=== PATIENT | female | born 1990 | race Caucasian/White ===

== ENCOUNTER 2024-09-06 12:40 | Emergency (ER) | payer OTHER, SELFPAY ==
[2024-09-06 12:49] VITALS: BP 128/82; PULSE 85; RESP 20; TEMP 37.2; O2SAT 99; BMI 31.1
[2024-09-06 13:07] VITALS: PULSE 85
[2024-09-06 13:08] VITALS: BP 125/76; PULSE 82; RESP 19; O2SAT 99
--- NOTE | 2024-09-06 13:10 | EKG_ITS ---
[address] [address] Test Date: 2024-09-06 Pat Name: Dania Granger Department: [facility] Room: Gender: Female Psychiatry Physician: СЕРГЕЙ : 1990 Requested By: Order Number: [id number] Reading MD: Sammy Finney MD Measurements Intervals [place] Rate: 74 P: 59 [place]: 174 QRS: 50 QRSD: 84 T: 8 QT: 382 QTc: 424 Interpretive Statements Normal sinus rhythm Cannot rule out Anterior infarct , age undetermined Electronically Signed On 09-07-2024 7:31:05 PDT by Sammy Finney MD
[2024-09-06 13:11] LABS: Add Manual Diff / Slide Review NO; Basophils Absolute Auto 100 /uL (0-100); Basophils Percent Auto 0.6 % (0-2); Eosinophils Absolute Auto 200 /uL (0-450); Hematocrit 38.7 % (36-46); Hemoglobin 13.4 g/dL (12.0-16.0); Lymphocytes Absolute Auto 1900 /uL (1100-4500); Lymphocytes Percent Auto 21.5 % (25-40); Mean Corpuscular HGB Conc 34.7 % (30-36); Mean Corpuscular Hemoglobin 30.4 PG (26-34); Mean Corpuscular Volume 87.6 fL (80-100); Monocytes Absolute Auto 500 /uL (0-900); Monocytes Percent Auto 5.3 % (3-14); Neutrophils Absolute Auto 6200 /uL (1500-7000); Neutrophils Percent Auto 70.6 % (50-75); Platelet Count 220 X10^3/uL (150-400); Red Blood Cell Count 4.42 X10^6/uL (4.0-5.2); Red Cell Distribution Width 13.4 % (11.6-14.8); White Blood Cell Count 8.7 X10^3/uL (4.5-11.0)
[2024-09-06 13:16] VITALS: BP 136/73; PULSE 81; RESP 20; O2SAT 98
[2024-09-06 13:29] LABS: INR 1.1 (0.9-1.3); Prothrombin Time 12.4 SECONDS (9.4-12.5)
[2024-09-06 13:30] VITALS: BP 123/69; PULSE 85; RESP 19; O2SAT 99
[2024-09-06 13:32] LABS: PTT Partial Thromboplastin Tim 34 SECONDS (25.1-36.5)
[2024-09-06 13:34] LABS: Alanine Aminotransferase 25 IU/L (<35); Albumin 4.5 g/dL (3.5-5.0); Albumin Globulin Ratio 1.6 (1.0-2.8); Alkaline Phosphatase 58 U/L (38-126); Aspartate Aminotransferase 27 IU/L (14-36); BUN Creatinine Ratio 14.5 (6-22); Bilirubin Total 0.7 mg/dL (0.2-1.3); Blood Urea Nitrogen 10 mg/dL (7-17); Calcium 9.3 mg/dL (8.4-10.2); Carbon Dioxide 22 mmol/L (22-32); Chloride 106 mmol/L (98-107); Estimated Glomerular Filt Rate > 60 mL/min (>60); Globulin 2.9 g/dL (1.7-4.1); Glucose 93 mg/dL (70-99); HEMOLYSIS < 15 (0-50); Potassium 3.8 mmol/L (3.4-5.1); Sodium 139 mmol/L (137-145); Total Protein 7.4 g/dL (6.3-8.2)
[2024-09-06] MEDS: PANTOPRAZOLE 40 MG VIAL 80 MG IV (13:38)
--- NOTE | 2024-09-06 13:41 | ED_ITS ---
HPI - GI Bleed General Chief complaint: GI Bleed Stated complaint: Rectal bleeding 5 weeks Time Seen by Provider: 09/06/24 12:58 Source: patient Mode of arrival: Ambulatory History of Present Illness HPI Narrative: Patient is a female, approximately six weeks gestation, who presents with a 2.5-hour history of bright red blood in her stool. She reports that the blood appeared mixed with stool and water, and she is uncertain if tissue was present. She denies abdominal pain, cramping, burning with urination, or vaginal discharge. She describes a mild stinging or burning sensation in the anal area, similar to the feeling of a medicated hemorrhoid, but her checked and did not observe any visible hemorrhoids. She has a history of hemorrhoids during her previous . Pertinent positives: Bright red blood in stool, mild stinging or burning sensation in the anal area. Pertinent negatives: No abdominal pain, cramping, burning with urination, or vaginal discharge. Past Medical History: Gestational diabetes during her last , history of two chemical pregnancies, and a prior delivery complicated by shoulder dystocia due to a large baby (9 lbs 8 oz). Medications: Zyrtec, vitamin D supplement, vitamins, and 300 mg of Wellbutrin daily. Surgical History: Not mentioned. Allergies: Not mentioned. Related Data Allergies Allergy/AdvReac Type Severity Reaction Status Date / Time No Known Drug Allergies Allergy Verified 09/06/24 13:31 Review of Systems Review of Systems Narrative: Constitutional: no fevers, chills, or fatigue. Eyes: no visual changes. Ears/Nose/Throat: no nasal congestion or drainage. Respiratory: no shortness of breath or increased work of breathing. Cardiac: no chest pain. Gastrointestinal: reports bright red blood in stool, denies abdominal pain or cramping. Genitourinary: denies burning with urination or vaginal discharge. Skin: no rash or lesions. Musculoskeletal: denies significant edema or erythema in lower extremities. Neurologic: no confusion or dizziness. Psychiatric: no mood changes. Other: no additional complaints. Patient History Social History Smoking Status: Never smoker Smoking Status: Never smoker Exam Narrative Exam Narrative: General: Well appearing, well nourished, alert, and cooperative. Skin: Good turgor, no rash, unusual bruising or prominent lesions. Head: Normocephalic, atraumatic. HEENT: Conjunctiva clear, EOM intact, PERRL, mucous membranes moist. Neck: Supple, normal ROM. Heart: Regular rate and rhythm, no murmur or gallop or rubs. Lungs: Clear to auscultation bilaterally, no rales, rhonchi, or wheezes. No signs of increased work of breathing. Abdomen: Soft and nontender. No tenderness on abdominal palpation. Bowel sounds normal. No mass or hernia. Back: Spine normal without deformity or tenderness, no CVA tenderness. Extremities: Warm, well-perfused upper extremities bilaterally with 2+ radial pulses. No significant edema or overlying erythema in bilateral lower extremities. Peripheral pulses intact. Neurologic: CN 2-12 normal. Normal sensation and motor exam. Psychiatric: Oriented ?3, normal mood and affect. Initial Vital Signs Initial Vital Signs: Vital Signs Temperature 99 F 09/06/24 12:49 Pulse Rate 85 09/06/24 12:49 Respiratory Rate 20 09/06/24 12:49 Blood Pressure 128/82 09/06/24 12:49 Pulse Oximetry 99 09/06/24 12:49 Oxygen Delivery Method Room Air 09/06/24 12:49 Course Orders Ordered: ED Orders 09/06/24 12:54 EKG-12 Lead Stat 09/06/24 13:01 Complete Blood Count AUTO DIFF Stat Comprehensive Metabolic Panel Stat PTT Partial Thromboplastin Mushtaq Stat Prothrombin Time INR Stat Type and Screen Stat Ondansetron HCl (Ondansetron 4 Mg/2 Ml Inj) 4 mg IV NOW PRN PRN Reason: Nausea And Vomiting Ondansetron HCl (Ondansetron 4 Mg Odt) 4 mg SL NOW PRN PRN Reason: Nausea And Vomiting Discontinued Medications Pantoprazole Sodium (Pantoprazole 40 Mg Vial) 80 mg IV NOW ONE Stop: 09/06/24 12:55 Last Admin: 09/06/24 13:38 Dose: 80 mg Documented By: SB Vital Signs Vital signs: Vital Signs - 8 hr 09/06/24 12:49 09/06/24 13:07 09/06/24 13:08 Temperature 99 F Pulse Rate 85 85 82 Respiratory Rate 20 19 Blood Pressure 128/82 Pulse Oximetry 99 99 Oxygen Delivery Method Room Air 09/06/24 13:08 09/06/24 13:16 09/06/24 13:16 Temperature Pulse Rate 81 Respiratory Rate 20 Blood Pressure 125/76 136/73 Pulse Oximetry 98 Oxygen Delivery Method Room Air 09/06/24 13:30 09/06/24 13:30 Temperature Pulse Rate 85 Respiratory Rate 19 Blood Pressure 123/69 Pulse Oximetry 99 Oxygen Delivery Method MDM - GI Bleed Lab Data Lab results narrative: Patient's labs were reviewed which were overall reassuring patient has no significant leukocytosis and her hemoglobin is found to be 13.4, no evidence of significant thrombocytopenia -patient's liver enzymes within normal limits with no acute abnormalities requiring ED intervention -intact kidney function 09/06/24 13:01 09/06/24 13:01 Labs: Lab Results 09/06/24 Range/Units 13:01 WBC 8.7 (4.5-11.0) X10^3/uL RBC 4.42 (4.0-5.2) X10^6/uL Hgb 13.4 (12.0-16.0) g/dL Hct 38.7 (36-46) % MCV 87.6 (80-100) fL MCH 30.4 (26-34) PG MCHC 34.7 (30-36) % RDW 13.4 (11.6-14.8) % Plt Count 220 (150-400) X10^3/uL Neut % (Auto) 70.6 (50-75) % Lymph % (Auto) 21.5 L (25-40) % [place] % (Auto) 5.3 (3-14) % Eos % (Auto) 2.0 (2-4) % Baso % (Auto) 0.6 (0-2) % Neut # (Auto) 6200 (9434-9150) /uL Lymph # (Auto) 1900 (9131-7597) /uL [place] # (Auto) 500 (0-900) /uL Eos # (Auto) 200 (0-450) /uL Baso # (Auto) 100 (0-100) /uL PT 12.4 (9.4-12.5) SECONDS INR 1.1 (0.9-1.3) APTT 34 (25.1-36.5) SECONDS Sodium 139 (137-145) mmol/L Potassium 3.8 (3.4-5.1) mmol/L Chloride 106 (98-107) mmol/L Carbon Dioxide 22 (22-32) mmol/L BUN 10 (7-17) mg/dL Creatinine 0.69 (0.52-1.04) mg/dL Estimated GFR > 60 (>60) mL/min BUN/Creatinine Ratio 14.5 (6-22) Glucose 93 (70-99) mg/dL Calcium 9.3 (8.4-10.2) mg/dL Total Bilirubin 0.7 (0.2-1.3) mg/dL AST 27 (14-36) IU/L ALT 25 (<35) IU/L Alkaline Phosphatase 58 (38-126) U/L Total Protein 7.4 (6.3-8.2) g/dL Albumin 4.5 (3.5-5.0) g/dL Globulin 2.9 (1.7-4.1) g/dL Albumin/Globulin Ratio 1.6 (1.0-2.8) Blood Type A Positive Antibody Screen Negative Point of Care Testing Test Results Positive Stool Occult Blood Positive Urine Dip Bedside Urine Glucose Negative Bedside Urine Bilirubin - Negative Bedside Urine Ketone - Negative Urine Specific [place] 1.015 Bedside Urine Occult Blood - Negative Bedside Urine pH 6.5 Bedside Urine Protein - Negative Bedside Urine Urobilinogen - Negative Bedside Urine Nitrite - Negative Bedside Urine Leukocytes - Negative Esterase Treatment and disposition Shared decision making:: Decision for hospitalization versus outpatient follow up for potential colonoscopy MDM Narrative Medical decision making narrative: INITIAL EVALUATION AND PLAN: - Perform a physical exam to evaluate for hemorrhoids or other potential sources of bleeding, including the anal and vaginal areas. - Blood work to assess hormone levels, hemoglobin levels, and evaluate for significant blood loss. - Determine the source of bleeding, considering possibilities such as hemorrhoids, gastrointestinal bleeding, or other etiologies. - Follow-up with [facility] for first appointment next and scheduled ultrasound on the . - Continue current medications, including vitamins. Differential diagnosis includes but is not limited to: hemorrhoids, gastrointestinal bleeding, 1st trimester bleeding, vaginal bleeding, or other causes of rectal bleeding. Well-appearing hemodynamically stable 34-year-old female coming in for bright red blood per rectum, no tachycardia, hypotension or significant abdominal pain. -physical exam on pelvic exam shows no blood within the vaginal vault no active bleeding, patient does have some bright red blood on rectum on digital rectal exam. Suspect rectal rather than vaginal source of the bleeding do not believe patient requires ultrasound at this time however it was considered given patient has no vaginal bleeding and no abdominal tenderness at this time. She should follow up outpatient with her OB provider. -in regards to her lower GI bleeding she has not had any incidents since she was in the emergency department, she has no significant drop in hemoglobin she has no significant tachycardia, hypotension or symptoms of anemia, the case was discussed with Dr. De Los Santos of the surgery team and we discussed potential admission versus outpatient follow up, given the patient is relatively low risk given age, blood count and vital signs will opt for outpatient management and a referral was placed so that she could be seen in their clinic as soon as possible. Strict return precautions were discussed with the patient prior to DC Discharge Plan Departure Patient Disposition: Home Clinical Impression: Acute lower GI bleeding Instructions: Gastrointestinal Bleeding Activity Restrictions/Additional Instructions: You were seen in the emergency department today and found to have some blood coming from your rectum fortunately you had reassuring lab work vital signs and abdominal exam. Your case was discussed with Dr. De Los Santos of the General surgery team who was agreeable to seeing you in their clinic on Wednesday however if you have worsening symptoms in the meantime such as feeling like he may pass out or extensive bleeding please return to the ED as you may need to be admitted in order to get this done under monitoring. Please call their office as soon as possible in order to confirm her appointment and need for any GI prep Name Detail Ian De Los Santos MD Physician Address [address], [address] [place] [address] Phone Email [email or web address] [email or web address] Direct Address Referrals: Ian De Los Santos MD [Physician] - (Patient is seen in the emergency department for lower GI bleeding, requested to have them seen in the office on Wednesday rather than inpatient admission. Please call them for appointment in any need for GI prep.) Anthony Bolanos MD [Emergency Provider] - Provider,Boo WESTON [Primary Care Provider] - Stand Alone Forms: Patient Portal/API/Survey
== END 2024-09-06 14:54 | disposition home or self-care (01) ==
PROVIDERS: Emergency Provider Emergency Medicine
DX: O26.891 Other specified pregnancy related conditions, first trimester (principal); K92.2 Gastrointestinal hemorrhage, unspecified; Z3A.01 Less than 8 weeks gestation of pregnancy
CPT/HCPCS: 36415; 80053; 81003; 81025; 82272; 85025; 85610; 85730; 86850; 86900; 86901; 93005; 93010; 96374; 99284; J2470

== ENCOUNTER → 2024-09-14 13:59 | Outpatient (CLI) | payer OTHER, SELFPAY ==
[2024-09-14 15:00] LABS: Add Manual Diff / Slide Review NO; Basophils Absolute Auto 0 /uL (0-100); Basophils Percent Auto 0.5 % (0-2); Eosinophils Absolute Auto 200 /uL (0-450); Hematocrit 36.1 % (36-46); Lymphocytes Absolute Auto 2100 /uL (1100-4500); Lymphocytes Percent Auto 21.7 % (25-40); Mean Corpuscular Hemoglobin 31.5 PG (26-34); Mean Corpuscular Volume 87.5 fL (80-100); Monocytes Absolute Auto 500 /uL (0-900); Monocytes Percent Auto 5.2 % (3-14); Neutrophils Absolute Auto 6800 /uL (1500-7000); Neutrophils Percent Auto 70.6 % (50-75); Platelet Count 199 X10^3/uL (150-400); Red Blood Cell Count 4.13 X10^6/uL (4.0-5.2); Red Cell Distribution Width 13.5 % (11.6-14.8); White Blood Cell Count 9.7 X10^3/uL (4.5-11.0)
[2024-09-14 15:10] LABS: Hemoglobin A1C% w Est Avg Glu 4.6 % (4.0-6.0)
[2024-09-14 16:09] LABS: HCG Quantitative /Beta subunit 62206 mIU/mL
[2024-09-14 16:24] LABS: Hepatitis B Surface Antigen NEGATIVE s/c (NEGATIVE)
[2024-09-14 16:41] LABS: HIV 1 & 2 Ab/Ag 4th Gen Combo NEGATIVE (NEGATIVE); Hep C Virus Ab w/Reflex Quant NEGATIVE s/c (NEGATIVE)
[2024-09-14 17:03] LABS: Appearance Urine UA CLEAR; Bilirubin Urine UA NEGATIVE (NEGATIVE); Color Urine UA YELLOW; Glucose Urine UA NEGATIVE (Negative); Ketones Urine UA NEGATIVE (NEGATIVE); Leukocyte Esterase Urine UA NEGATIVE (NEGATIVE); Nitrite Urine UA NEGATIVE (Negative); Occult Blood Urine UA NEGATIVE (Negative); Protein Urine UA NEGATIVE (Negative); Urobilinogen Urine UA 0.2 E.U./dL (0.2)
[2024-09-14 17:07] LABS: pH Urine UA 6.5 (4.5-8.0)
== END ==
PROVIDERS: Referring Provider Family Medicine; Visit Provider Family Medicine
DX: O09.299 Supervision of pregnancy with other poor reproductive or obstetric history, unspecified trimester (principal); Z86.32 Personal history of gestational diabetes
CPT/HCPCS: 36415; 80055; 81003; 83036; 84702; 86787; 86803; 86850; 86900; 86901; 87086; 87389

== ENCOUNTER → 2024-10-20 14:04 | Outpatient (CLI) | payer OTHER, SELFPAY ==
[2024-10-20 15:09] LABS: Natera Collection Specimen Collected
== END ==
PROVIDERS: Referring Provider Family Medicine; Visit Provider Family Medicine
DX: Z34.82 Encounter for supervision of other normal pregnancy, second trimester (principal)
CPT/HCPCS: 36415

== ENCOUNTER → 2024-10-27 13:54 | Outpatient (CLI) | payer OTHER, SELFPAY ==
[2024-10-27 15:16] LABS: Hematocrit 30.5 % (36-46); Hemoglobin 10.9 g/dL (12.0-16.0)
[2024-10-27 15:39] LABS: GTT (PREG) 1 Hour PP 50gm Dose 107 mg/dL (76-139)
== END ==
PROVIDERS: Referring Provider Family Medicine; Visit Provider Family Medicine
DX: O09.299 Supervision of pregnancy with other poor reproductive or obstetric history, unspecified trimester (principal); Z86.32 Personal history of gestational diabetes
CPT/HCPCS: 36415; 82950; 85014; 85018

== ENCOUNTER → 2024-12-06 14:21 | Outpatient (CLI) | payer OTHER, SELFPAY ==
[2024-12-08 20:12] LABS: Gest Age on Col Date 18.7 weeks (.); OSBR Risk 1IN 9540 (.)
== END ==
PROVIDERS: Referring Provider Family Medicine; Visit Provider Family Medicine
DX: Z34.90 Encounter for supervision of normal pregnancy, unspecified, unspecified trimester (principal); Z13.79 Encounter for other screening for genetic and chromosomal anomalies
CPT/HCPCS: 36415; 82105

== ENCOUNTER 2024-12-07 19:12 | Emergency (ER) | payer OTHER, SELFPAY ==
[2024-12-07 19:24] VITALS: BP 120/80; PULSE 107; RESP 18; TEMP 36.8; O2SAT 100; BMI 34.2
[2024-12-07 20:18] LABS: Ictotest Urine Negative (Negative)
== END 2024-12-07 21:33 | disposition left against medical advice (07) ==
PROVIDERS: Emergency Provider Emergency Medicine
DX: O26.892 Other specified pregnancy related conditions, second trimester (principal); R10.31 Right lower quadrant pain; O21.9 Vomiting of pregnancy, unspecified; Z3A.19 19 weeks gestation of pregnancy
CPT/HCPCS: 81003; 99281

== ENCOUNTER → 2024-12-15 07:24 | Outpatient (CLI) | payer OTHER, SELFPAY ==
--- NOTE | 2024-12-15 07:25 | DI.US.S_ITS ---
PROCEDURE: US OB >= 14 WEEKS FETUS INDICATIONS: Anatomy Scan Complete OUTSIDE/PRIOR DATING DATA: Last menstrual period (LMP): July 28, 2024. LMP-based estimated date of delivery (ETHAN): May 04, 2025. First dating scan (date and location): September 19, 2024. Estimated date of delivery (ETHAN) from first dating scan: May 04, 2025. The calculations are made using the LMP ETHAN of May 04, 2025. TECHNIQUE: Real-time scanning was performed of the fetus, with image documentation and biometric measurements. Endovaginal scanning: Not performed COMPARISON: None. FINDINGS: General: A single living intrauterine gestation is present. Presentation: Variable. Placenta: Placental position is anterior, without previa. Amniotic fluid index: 16.6 cm, normal range is 5-24 cm. Single deepest vertical pocket is 5.8 cm. heart rate: 147 beats per minute. Maternal cervical canal: 4.4 cm long. Normal lower limit is 2.5 cm. biometrics: Biparietal diameter: 4.7 cm, 20 weeks and 2 days Head circumference: 16.8 cm, 19 weeks and 3 days Abdominal circumference: 14.6 cm, 19 weeks and 6 days Femur length: 3.2 cm, 19 weeks and 6 days Clinically estimated gestational age: 20 weeks and 0 days Composite gestational age from present scan: 19 weeks and 6 days Estimated weight and percentile: 315 g which correlates with the 35th percentile for gestational age. Anatomic survey: Neuro: Ventricles are non-dilated at less than 10 mm. Cisterna magna is normal at 3-11 mm. Cerebellum is normal in size and morphology. Nuchal skin fold: Normal at less than 6 mm between 14-21 weeks gestational age. Face: Nose and lips, facial profile are normal. Spine: No evidence for spina bifida. Heart: 4-chambered heart is present, with normal ventricular outflow tracts. Diaphragm: Diaphragm is intact. Stomach: Left-sided stomach is present. Kidneys: No hydronephrosis. Normal is less than 5 mm in 2nd trimester, less than 7 mm in 3rd trimester. Cord: 3-vessel cord has orthotopic insertion. Bladder: Normal in size. Extremities: All 4 extremities identified. IMPRESSION: Single living intrauterine gestation with estimated sonographic gestational age of approximately 19 weeks and 6 days with estimated weight of approximately 315 g (35th percentile for age). Expected interval growth has occurred. Normal routine second-trimester anatomy screening survey. We strive to produce accurate, complete, and clear reports of imaging services. To assist us in improving patient care, this report was composed using standard report templates and voice recognition software. Therefore, it may contain abnormal punctuation, insertions and/or omissions. Occasional wrong-word or sound-alike substitutions may occur. Though we review the report and make efforts to correct it, we do recommend that the report be read carefully in proper context to recognize any text inaccuracies. Dictated by: Anthony Cash M.D. on 12/15/2024 at 11:22 Approved by: Anthony Cash M.D. on 12/15/2024 at 11:26
== END ==
LOC: US 07:24
PROVIDERS: Referring Provider Family Medicine; Visit Provider Family Medicine
DX: Z36.89 Encounter for other specified antenatal screening (principal)
CPT/HCPCS: 76811

== ENCOUNTER → 2025-01-18 09:31 | Outpatient (CLI) | payer OTHER, SELFPAY ==
[2025-01-18 12:15] LABS: Hematocrit 26.9 % (36-46); Hemoglobin 9.4 g/dL (12.0-16.0)
[2025-01-18 12:40] LABS: GTT (PREG) 1 Hour PP 50gm Dose 96 mg/dL (76-139)
== END ==
PROVIDERS: Referring Provider Family Medicine; Visit Provider Family Medicine
DX: O99.019 Anemia complicating pregnancy, unspecified trimester (principal); O09.299 Supervision of pregnancy with other poor reproductive or obstetric history, unspecified trimester; Z86.32 Personal history of gestational diabetes
CPT/HCPCS: 36415; 82950; 85014; 85018

== ENCOUNTER → 2025-04-10 13:55 | Outpatient (CLI) | payer OTHER, SELFPAY ==
[2025-04-11 14:53] LABS: Strep Grp B PCR NEG for Grp B Strep
== END ==
PROVIDERS: Visit Provider Family Medicine
DX: Z34.80 Encounter for supervision of other normal pregnancy, unspecified trimester (principal)
CPT/HCPCS: 87653

== ENCOUNTER 2025-04-12 21:02 | Observation (INO) | payer OTHER, SELFPAY ==
[2025-04-12 22:04] LABS: Protein (Total) Urine Random 16 mg/dL (0-12); Protein Creatinine Ratio Urine 1.11 GRAM/24H
[2025-04-12 22:23] LABS: Add Manual Diff / Slide Review NO; Hematocrit 27.4 % (36-46); Hemoglobin 9.8 g/dL (12.0-16.0); Lymphocytes Absolute Auto 2000 /uL (1100-4500); Mean Corpuscular HGB Conc 35.7 % (30-36); Mean Corpuscular Hemoglobin 33.7 PG (26-34); Mean Corpuscular Volume 94.5 fL (80-100); Platelet Count 180 X10^3/uL (150-400)
[2025-04-12 22:38] LABS: Alanine Aminotransferase 19 IU/L (<35); Albumin 3.8 g/dL (3.5-5.0); Albumin Globulin Ratio 1.3 (1.0-2.8); Alkaline Phosphatase 77 U/L (38-126); Blood Urea Nitrogen 9 mg/dL (7-17); Calcium 9.0 mg/dL (8.4-10.2); Carbon Dioxide 20 mmol/L (22-32); Chloride 108 mmol/L (98-107); Estimated Glomerular Filt Rate > 60 mL/min (>60); Globulin 2.9 g/dL (1.7-4.1); Glucose 85 mg/dL (70-99); HEMOLYSIS < 15 (0-50); Potassium 3.8 mmol/L (3.4-5.1); Sodium 135 mmol/L (137-145); Total Protein 6.7 g/dL (6.3-8.2); Uric Acid 4.2 mg/dL (2.5-6.2)
--- NOTE | 2025-04-13 21:15 | PM.OBTRLD ---
Visit Information Visit Information Date of evaluation: 04/12/25 Primary OB Provider: Jose Winter On-call OB Provider: Leticia Duckworth Reason for Evaluation: Yes other Comments/Additional reasons for admission: 34 yo at 36w6d with concern for elevated blood pressures at home and hand swelling. Took BP at home and it was 152/86. Vital Signs Vital Signs: BP 124/74 [facility] Medical History (Updated 03/30/25 @ 11:54 by Jose Winter MD) Sleep apnea (~2022) Allergies (~1995) PTSD (post-traumatic stress disorder) (~2011) Anxiety (~2011) Carpal tunnel syndrome (~2022) Anemia (~2017) Chlamydia (~2016) History of urinary incontinence (~2022) ADHD (attention deficit hyperactivity disorder) (~2010) Depression (~2011) Irritable bowel Eczema (~1995) Hemorrhoids during (~2017) Gestational diabetes Chicken pox (~1997) Surgical History (Updated 09/14/24 @ 11:09 by Joan Montero RN) [place] teeth removed History of tonsillectomy and adenoidectomy Family History (Updated 09/20/24 @ 21:04 by Syl Hull) Father Heart disease Hyperlipidemia Hypertension Mother Hyperlipidemia Ovarian cyst Aunt Breast cancer Grandfather Heart disease Grandfather Heart disease Son Eczema Food allergy Grandmother No problems noted. Social History marital status: number of children: 2 household members: spouse lives independently: Yes caregiver/support person: Yes housing: house pets and animals: No education level: college (Associate's degree) occupational status: employed current occupational exposures/hazards: No special nemesio needs: No travel history: recent (domestic only) seatbelt use: always helmet use: Yes water heater temp set < 120 deg: Yes working smoke detector in home: Yes fire extinguisher in home: Yes carbon monox detector in home: Yes firearms in home: Yes firearms unloaded and locked: Yes do you feel safe at home: Yes Tobacco: How many years used: 15 second hand exposure: Yes ( smokes) 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) substance use type: former substance user (in teens and early 20s) and marijuana (not while /) during the past year weight has: decreased > 10 lbs (intentional 70 lb loss with healthier lifestyle choices) well-balanced diet: daily or most days daily servings fruits/ve or more times/day caffeine: Yes (single cup coffee most days) 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 % (Auto) 6.0 Eos % (Auto) 1.1 L Baso % (Auto) 0.3 Neut # (Auto) 8000 H Lymph # (Auto) 2000 [place] # (Auto) 700 Eos # (Auto) 100 Baso # (Auto) 0 Sodium 135 L Potassium 3.8 Chloride 108 H Carbon Dioxide 20 L BUN 9 Creatinine 0.55 Estimated GFR > 60 BUN/Creatinine Ratio 16.4 Glucose 85 Uric Acid 4.2 Calcium 9.0 Total Bilirubin 1.2 AST 29 ALT 19 Alkaline Phosphatase 77 Total Protein 6.7 Albumin 3.8 Globulin 2.9 Albumin/Globulin Ratio 1.3 U Random Total Protein 16 H Urine Creatinine 14.34 Protein/Creatinin Ratio 1.11 Evaluation Evaluation Baseline heart rate: 125 Variability: Moderate (6-25) monitor accelerations: Present Monitor Decelerations: Absent Category of Tracing: Reactive Diagnosis, Plan/Disposition Plan/Disposition Plan: 34 yo at 36w6d with concern for elevated blood pressure at home. All BPs at L&D within normal limits. CBC and CMP unremarkable. P/C ratio elevated. Safe for discharge home as she does not have gHTN or pre-eclampsia. Recommend fu with primary provider for elevated p/c ratio. OB Disposition: home
== END 2025-04-12 23:06 | disposition home or self-care (01) ==
PROVIDERS: Admitting Provider Student in an Organized Health Care Education/Training Program; Referring Provider Student in an Organized Health Care Education/Training Program; Visit Provider Student in an Organized Health Care Education/Training Program
DX: O26.893 Other specified pregnancy related conditions, third trimester (principal); R03.0 Elevated blood-pressure reading, without diagnosis of hypertension; Z3A.36 36 weeks gestation of pregnancy
CPT/HCPCS: 36415; 59025; 80053; 84550; 85025; G0378; G0379

== ENCOUNTER 2025-04-15 18:47 | Outpatient (CLI) | payer OTHER, SELFPAY | END 2025-04-15 19:48 | disposition home or self-care (01) | LOC: LABOR 20:04 → OB 04-16 13:50 | PROVIDERS: Referring Provider Student in an Organized Health Care Education/Training Program; Visit Provider Student in an Organized Health Care Education/Training Program | DX: O26.893 Other specified pregnancy related conditions, third trimester (principal); R03.0 Elevated blood-pressure reading, without diagnosis of hypertension; O99.213 Obesity complicating pregnancy, third trimester; E66.9 Obesity, unspecified; Z3A.37 37 weeks gestation of pregnancy | CPT/HCPCS: 59025; G0378; G0379 ==

== ENCOUNTER 2025-04-29 10:37 | Outpatient (CLI) | payer OTHER, SELFPAY | END 2025-04-29 11:42 | disposition home or self-care (01) | LOC: OB 04-30 10:36 | PROVIDERS: Referring Provider Family Medicine; Visit Provider Family Medicine | DX: Z03.71 Encounter for suspected problem with amniotic cavity and membrane ruled out (principal); Z3A.39 39 weeks gestation of pregnancy | CPT/HCPCS: 59025; 84112; G0378; G0379 ==

== ENCOUNTER 2025-05-01 13:59 | Inpatient (IN) | payer OTHER, SELFPAY ==
[2025-05-01 14:37] VITALS: BP 125/74
[2025-05-01 15:21] LABS: Add Manual Diff / Slide Review NO; Hematocrit 30.8 % (36-46); Hemoglobin 10.8 g/dL (12.0-16.0); Lymphocytes Absolute Auto 1300 /uL (1100-4500); Mean Corpuscular HGB Conc 35.0 % (30-36); Mean Corpuscular Hemoglobin 33.3 PG (26-34); Mean Corpuscular Volume 94.9 fL (80-100); Platelet Count 184 X10^3/uL (150-400)
--- NOTE | 2025-05-01 18:32 | PM.OBHP.IH.1 ---
OB HPI History of Present Condition Chief complaint: Induction ETHAN Calculator Estimated Delivery Date Method Current WG Current Estimate 05/04/25 LMP (Certain) 39w 5d Other Estimates 05/04/25 Ultrasound #1 39w 5d Estimated Gestational Age (weeks): 39+4 : 3 Para: 2 Narrative: 34-year-old at GA 39+4 weeks presenting for eIOL. Endorses normal movement. Denies vaginal bleeding or denies leakage of fluid. course notable for anemia on iron supplement, ADHD/PTSD on bupropion, obesity, history of macrosomia with shoulder dystocia in 1st , history of GDM in 2nd (1h GTT normal x2). care: good care Dating criteria OB: LMP confirmed by 1st trimester US Ultrasounds: normal 1st trimester US and normal mid trimester US Preadmission Labs Last OB Lab Results: Blood Type A Positive 05/01/25, 15:00 Antibody Screen Negative 05/01/25, 15:00 Hct, (36-46) 30.8 % L 05/01/25, 15:00 Hgb, (12.0-16.0) 10.8 g/dL L 05/01/25, 15:00 Hep Bs Antigen, (NEGATIVE) Negative s/c 09/14/24, 14:09 Hepatitis C Antibody, (NEGATIVE) Negative s/c 09/14/24, 14:09 Rubella Antibody, (>15) 126.0 IU/mL 09/14/24, 14:09 VZV IgG Antibody, (Non Reactive) Reactive 09/14/24, 14:09 Glucose 1 Hr 50 gm, (76-139) 96 mg/dL 01/18/25, 09:47 Hemoglobin A1c, (4.0-6.0) 4.6 % 09/14/24, 14:09 Group B Strep (PCR) Neg for grp b strep 04/10/25, 14:00 Prior (ies) Past Pregnancies Del. Date GA/Weeks Labor Lgth Wt Sex Route Outcome Anesthesia Place Delv Breastfeed Preg Comp Name 05/17/16 4-6 spontaneous 01/09/18 40.4 36 9 lb 8 oz Male vaginal live - full term epidural [place] 2 months [place] 08/04/22 39.5 23 8 lb 7 oz Male vaginal live - full term epidural Boo 7-8 months [place] 06/16/24 4-6 spontaneous Delivery Date: 05/17/16 Last Updated by: Joan Montero RN passed spontaneously, no complications Delivery Date: 01/09/18 Last Updated by: Joan Montero RN rapid 2nd stage Delivery Date: 08/04/22 Last Updated by: Joan Montero RN rapid 2nd stage Delivery Date: 06/16/24 Last Updated by: Joan Montero RN passed spontaneously, no complications Evaluation Evaluation Baseline heart rate: 140 Variability: Moderate (6-25) monitor accelerations: Present Monitor Decelerations: Absent Category of Tracing: Reactive Status: Category l Dilation: 1-2 cm Effacement: 0-30% station: -3 Position of cervix: mid Consistency: medium Samuels score: 3 Comments: Exam per L&D RN [facility] Medical History (Updated 03/30/25 @ 11:54 by Jose Winter MD) Sleep apnea (~2022) Allergies (~1995) PTSD (post-traumatic stress disorder) (~2011) Anxiety (~2011) Carpal tunnel syndrome (~2022) Anemia (~2017) Chlamydia (~2016) History of urinary incontinence (~2022) ADHD (attention deficit hyperactivity disorder) (~2010) Depression (~2011) Irritable bowel Eczema (~1995) Hemorrhoids during (~2017) Gestational diabetes Chicken pox (~1997) Surgical History (Updated 09/14/24 @ 11:09 by Joan Montero RN) [place] teeth removed History of tonsillectomy and adenoidectomy Family History (Updated 09/20/24 @ 21:04 by Syl Hull) Father Heart disease Hyperlipidemia Hypertension Mother Hyperlipidemia Ovarian cyst Aunt Breast cancer Grandfather Heart disease Grandfather Heart disease Son Eczema Food allergy Grandmother No problems noted. Social History marital status: number of children: 2 household members: spouse lives independently: Yes caregiver/support person: Yes housing: house pets and animals: No education level: college (Associate's degree) occupational status: employed current occupational exposures/hazards: No special nemesio needs: No travel history: recent (domestic only) seatbelt use: always helmet use: Yes water heater temp set < 120 deg: Yes working smoke detector in home: Yes fire extinguisher in home: Yes carbon monox detector in home: Yes firearms in home: Yes firearms unloaded and locked: Yes do you feel safe at home: Yes Tobacco: How many years used: 15 second hand exposure: Yes ( smokes) 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) substance use type: former substance user (in teens and early 20s) and marijuana (not while /) during the past year weight has: decreased > 10 lbs (intentional 70 lb loss with healthier lifestyle choices) well-balanced diet: daily or most days daily servings fruits/ve or more times/day caffeine: Yes (single cup coffee most days) 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 Meds Home Medications and Allergies Home Medications ?Medication ?Instructions ?Recorded ?Confirmed ?Type cholecalciferol (vitamin D3) 125 125 mcg PO DAILY 09/14/24 05/01/25 History mcg (5,000 unit) capsule vitamins with calcium 1 tab PO DAILY 09/14/24 05/01/25 History no.72-iron 27 mg-folic acid 1 mg tablet (M- Plus) pyridoxine (vitamin B6) 50 mg 50 mg PO BID-QID #90 tabs 09/19/24 05/01/25 Rx tablet ferrous sulfate 325 mg (65 mg 325 mg PO DAILY #90 tabs 01/20/25 05/01/25 Rx iron) tablet,delayed release bupropion HCl 300 mg 24 hr tablet, 300 mg PO QAM 03/15/25 05/01/25 History extended release Allergies Allergy/AdvReac Type Severity Reaction Status Date / Time egg AdvReac Mild Abdominal Verified 05/01/25 14:41 Pain mollusks AdvReac Mild Abdominal Verified 05/01/25 14:41 Pain OB Exam Narrative Exam Narrative: General: Well-nourished, no distress HEENT: NC/AT, EOMI, moist mucous membranes CV: RRR, normal S1 S2, no m/g/r Resp: CTAB Abd: Gravid, soft, NTND, +BS Ext: Full ROM, no edema Skin: No rash or lesions Neuro: A&O x3, normal tone, no focal deficits Objective Labs 05/01/25 15:00 Labs: Laboratory Results - last 24 hr 05/01/25 15:00 WBC 9.7 RBC 3.25 L Hgb 10.8 L Hct 30.8 L MCV 94.9 MCH 33.3 MCHC 35.0 RDW 15.5 H Plt Count 184 Neut % (Auto) 79.3 H Lymph % (Auto) 13.8 L [place] % (Auto) 5.8 Eos % (Auto) 0.7 L Baso % (Auto) 0.4 Neut # (Auto) 7600 H Lymph # (Auto) 1300 [place] # (Auto) 600 Eos # (Auto) 100 Baso # (Auto) 0 Blood Type A Positive Antibody Screen Negative Assessment and Plan Assessment and Plan Assessment and Plan narrative: 34-year-old at GA 39+4 weeks presenting for eIOL. -admit to L&D -cervical ripening with misoprostol q4h -GBS negative, ppx not indicated -pain control prn if desired by patient -PPH risk low -VTE risk low, SCDs with epidural -anticipate vaginal delivery Time-Based Coding :: 25 minutes spent with patient and on the chart (including review of chart, obtaining history, exam, reviewing outside data, placing orders, documenting exam and treatment plan, and counseling patient) on 05/01/2025.
[2025-05-01] MEDS: LACTATED RINGERS 1,000 ML 100 ML IV (23:38)
--- NOTE | 2025-05-01 23:38 | PM.AN.REGBLK ---
[facility] Pre-procedure Procedure: Continuous Lumbar Epidural for L&D Attending OB provider: Jose Winter PMH/ROS narrative: with PMH of former smoker, obesity, and anemia here for elective IOL requesting labor epidural. PSH/Anesthesia history narrative: Two previous epidurals - first worked well, no complaints, second took several attempts. Had tonsillectomy at young age without anesthetic complication. Exam narrative: See pre-anesthesia evaluation. ASA Class: III Labs: Hct 30.8 % (36-46) L 05/01/25 15:00 Plt Count 184 X10^3/uL (150-400) 05/01/25 15:00 Medications: Current Medications Generic Name Dose Route Start Last Admin Trade Name Freq PRN Reason Stop Dose Admin Butorphanol Tartrate 0.5 mg 05/01/25 23:07 Butorphanol 1 Mg/Ml Vial IV Q3H PRN Pruritis Calcium Carbonate 1,000 mg 05/01/25 14:14 Calcium Carbonate 500 Mg Tab PO Q2HR PRN Dyspepsia Carboprost Tromethamine 250 mcg 05/01/25 14:14 Carboprost 250 Mcg/Ml Ampul IM Q90M PRN Bleeding Diphenhydramine HCl 25 mg 05/01/25 23:07 Diphenhydramine 50 Mg/Ml Vial IV Q3H PRN Pruritis Ephedrine Sulfate 10 mg 05/01/25 23:07 Ephedrine 50 Mg/Ml Vial IV Q5M PRN Blood Pressure - Low Oxytocin/Lactated Ringer's 30 unit in 500 mls @ 200 mls/hr 05/01/25 14:14 Oxytocin Premix IV CONT PRN Bleeding Protocol Tranexamic Acid 1,000 mg/ 100 mls @ 600 mls/hr 05/01/25 14:14 Sodium Chloride IV NOW PRN Bleeding Oxytocin/Lactated Ringer's 30 unit in 500 mls @ 2 mls/hr 05/01/25 14:15 Oxytocin Premix IV TITRATE GARY Protocol 2 MILLIUNIT/MIN Lactated Ringer's 1,000 mls @ 100 mls/hr 05/01/25 14:15 Lactated Ringers IV 05/02/25 00:14 CONT GARY Lactated Ringer's 1,000 mls @ 999 mls/hr 05/01/25 23:07 Lactated Ringers IV 05/02/25 00:07 BOLUS ONE FENT 2MCG/ML BUPIV 0.125% EPI 200 mcg in 100 mls @ 8 mls/hr 05/01/25 23:15 Fentanyl/Bupiv/Ns 2mcg/Ml - 0.125% EPIDURAL CONT GARY Protocol Lidocaine HCl 20 ml 05/01/25 14:14 Lidocaine 1% 20 Ml INJ INTRA-OP PRN Post Delivery Methylergonovine Maleate 0.2 mg 05/01/25 14:14 Methylergonovine 0.2 Mg Tablet PO Q6HR PRN Heavy Bleeding Methylergonovine Maleate 0.2 mg 05/01/25 14:14 Methylergonovine 0.2 Mg/Ml Vial IM NOW PRN Bleeding Metoclopramide HCl 10 mg 05/01/25 23:07 Metoclopramide 10 Mg/2 Ml Inj IV Q4H PRN Nausea And Vomiting Mineral Oil 30 ml 05/01/25 14:14 Mineral Oil 30 Ml Udc TOP PRN PRN Version Misoprostol 800 mcg 05/01/25 14:14 Misoprostol 200 Mcg Tablet NE NOW PRN Bleeding Misoprostol 400 mcg 05/01/25 14:14 Misoprostol 200 Mcg Tablet SL NOW PRN Bleeding Misoprostol 50 mcg 05/01/25 14:14 05/01/25 19:08 Misoprostol 25 Mcg Tablet PO 50 mcg Q4H PRN Administration cervical ripening Nalbuphine HCl 5 mg 05/01/25 23:07 Nalbuphine 20 Mg/Ml Ampul IV Q6H PRN Pruritis Naloxone HCl 0.2 mg 05/01/25 14:14 Naloxone 0.4 Mg/Ml Vial IV Q2MIN PRN Opiate Reversal Naloxone HCl 0.2 mg 05/01/25 23:07 Naloxone 0.4 Mg/Ml Vial IV Q2MIN PRN Opiate Reversal Ondansetron HCl 4 mg 05/01/25 14:14 Ondansetron 4 Mg/2 Ml Inj IV Q4HR PRN Nausea And Vomiting Ondansetron HCl 4 mg 05/01/25 23:07 Ondansetron 4 Mg/2 Ml Inj IV Q6H PRN Nausea And Vomiting Oxytocin 10 unit 05/01/25 14:14 Oxytocin 10 Unit/Ml Vial IM NOW PRN Bleeding Allergies: Allergies Allergy/AdvReac Type Severity Reaction Status Date / Time egg AdvReac Mild Abdominal Verified 05/01/25 14:41 Pain mollusks AdvReac Mild Abdominal Verified 05/01/25 14:41 Pain Procedure Insertion date: 05/01/25 Insertion time: 23:25 Prep/Local: 1% lidocaine (5mL) Interspace: L3/4 Patient position: sitting Needle: 18 gauge Hustead Loss of resistance with: saline JOHN at (cm): 9 Catheter placed at SKIN (cm): 15 Catheter in SPACE (cm): 6 Insertion: No CSF, No Blood, No Paresthesia with insertion, No Paresthesia with injection and No Test dose reaction Initial Medications TEST DOSE time: 23:27 TEST DOSE: 1.5% lidocaine with epinephrine 1:200k (mL): 3 Infusion INFUSION: 0.125% bupivacaine and with fentanyl 2 mcg/mL Initial rate (mL/hr): 10 Subsequent interventions: 0420: Called to bedside for painful contractions to left low pelvis. Patchy dermatome coverage R>L. Pulled epidural catheter back to 12cm and bolus given of 5mL 2% lido, 5mL 0.25% bupi, and 100mcg fentanyl. Increased basal rate to 10mL/hr. Post-procedure Anesthesia date START: 05/01/25 Anesthesia time START: 23:20 Anesthesia date END: 05/02/25 Anesthesia time END: 05:43 Post-procedure Anesthesia Assessment: Yes CV function: HR/BP stable, Yes Resp function: RR/sat/airway adequate, Yes Post-op hydration adequate, Yes Pain control adequate, Yes Nausea & vomiting absent, Yes Temperature > 36 C, Yes Mental status appropriate and No Anesthesia complications
[2025-05-01] MEDS: OXYTOCIN PREMIX 30 UNIT/500 ML PLAST..BAG IV (23:40)
[2025-05-02] MEDS: CALCIUM CARBONATE 500 MG TAB 1000 MG PO (01:09)
[2025-05-02] MEDS: LACTATED RINGERS 1,000 ML 125 ML IV (03:40)
[2025-05-02] MEDS: FENT 2MCG/ML BUPIV 0.125% EPI 200 MCG/100 ML PLAST..BAG 8 MCG EPIDURAL (04:16)
--- NOTE | 2025-05-02 06:03 | P.PCNOB_ITS ---
Events: Labor Induction Labor & Delivery Delivery date: 05/02/25 Delivery Time: 05:43 Intrapartal Events: Acceleration and Deceleration Cervical ripening method: per misoprostal protocol Induction method: per pitocin protocol Delivery monitor: external FHT and external uterine Route of delivery: L&D Laceration Description: None Estimated blood loss (mL): 300 Anesthesia Type: Epidural Narrative: Patient fully dilated at 0508 and began pushing at 0537. Spontaneous vaginal delivery of a viable female infant in the JOSAFAT position occurred at 0543. The was suctioned and stimulated at the perineum, and gave appropriate cry with movement of all extremities. Delayed cord clamping was observed for >60 seconds. The cord was clamped and cut, and the handed to mother for skin to skin. Cord blood and segment were obtained. The placenta was delivered without difficulty using gentle cord traction and found to be intact with a 3- vessel cord. After fundal massage the uterus was firm and bleeding stopped. T he vagina and cervix were examined for lacerations, with none noted. Patient stable with rooming in, bonding skin to skin and attempting to breastfeed. [place] Baby 1: Infant gender: Female Presentation: vertex Position: Right Occiput Anterior Placenta delivery description: Spontaneous Cord Vessel Description: 3 Vessels score (1 min): 9 score (5 min): 9 weight: 7 lb 12.623 oz Plan for aftercare: Routine care
[2025-05-02 08:07] LABS: Hematocrit 30.7 % (36-46); Hemoglobin 10.6 g/dL (12.0-16.0)
[2025-05-02] MEDS: DERMOPLAST SPRAY 20% 60 ML 1 SPRAY TOP (09:27)
[2025-05-02] MEDS: FERROUS SULFATE 325 MG TABLET PO (09:55)
[2025-05-02] MEDS: IBUPROFEN 600 MG TABLET PO ×3 (09:56→22:44)
[2025-05-02] MEDS: ACETAMINOPHEN 325 MG TABLET 650 MG PO ×2 (13:41→20:01)
[2025-05-03] MEDS: ACETAMINOPHEN 325 MG TABLET 650 MG PO ×2 (02:01→08:26)
[2025-05-03] MEDS: IBUPROFEN 600 MG TABLET PO (04:24)
--- NOTE | 2025-05-03 08:03 | P.DS_ITS ---
Discharge Providers Provider Date of admission: 05/01/25 13:59 Discharge Date: 05/03/25 Primary care physician: Boo WESTON Provider Consults: 05/02/25 07:05 Consult to Wildlife Ec[employer] Professor Routine Comment: Discharge provider: Jose Winter MD Summary Hospital Course Date Patient Seen: 05/03/25 Diagnoses: # # mother #anemia #ADHD #depression Hospital Course: Admitted for eIOL on 05/01/2025. Progressed adequately with cervical ripening and pitocin augmentation to complete dilation over the course of 13 hours. She had an uncomplicated of a live female infant with no lacerations. Her course was uncomplicated. At discharge patient is ambulating well, tolerating normal diet, breast-feeding without difficulty, and pain is adequately controlled. She reports bleeding is less than normal menses. Peripartum Data Infant Delivery Method: Natural Vaginal Laceration Description: None complications: none [place] 1: Gender: Female Disposition of : home Discharge Diagnosis (1) (spontaneous vaginal delivery): Status: Acute (2) Anemia affecting : Status: Acute (3) Obesity affecting : Status: Acute (4) ADHD (attention deficit hyperactivity disorder): Status: Acute (5) Depression: Status: Acute Status at Discharge Cognitive/behavioral status at discharge: oriented Functional status at discharge: independent ambulation Overall status at discharge: patient is back to baseline Time Spent with Patient Time attestation: Total time spent providing and/or coordinating discharge services: 25 minutes Objective Labs 05/02/25 07:56 Labs: Laboratory Results - last 24 hr 05/02/25 07:56 Hgb 10.6 L Hct 30.7 L Exam Narrative Exam Narrative: General: Well-appearing, well-nourished, no distress HEENT: Moist mucous membranes, no pallor CV: Regular rate and rhythm, no murmur auscultated Resp: CTAB, comfortable work of breathing Abdomen: Soft, bowel sounds present, fundus firm below umbilicus with appropriate tenderness Extremities: No edema, no calf tenderness or evidence of DVT Discharge Plan Discharge Plan Patient Disposition: Home Discharge orders & Medications Prescriptions: New acetaminophen 325 mg Tablet 650 mg PO Q6H PRN (Reason: Pain, Mild (1-3)) Qty: 60 0RF Dermoplast (with menthol) 20-0.5 % Aerosol 1 spray topical Q1HR PRN (Reason: Pain, Moderate (4-6)) Qty: 78 0RF ibuprofen 600 mg Tablet 600 mg PO Q6H Qty: 60 1RF Purelan Cream 1 applic topical PRN PRN (Reason: Sore Nipples) Qty: 7 6RF polyethylene glycol 3350 17 gram/dose powder 17 g PO DAILY Qty: 510 1RF Continued bupropion HCl 300 mg tablet extended release 24 hr 300 mg PO QAM pyridoxine (vitamin B6) 50 mg tablet 50 mg PO BID-QID Qty: 90 3RF ferrous sulfate 325 mg (65 mg iron) tablet,delayed release (DR/EC) 325 mg PO DAILY Qty: 90 1RF M- Plus 27 mg iron- 1 mg tablet 1 tab PO DAILY cholecalciferol (vitamin D3) 125 mcg (5,000 unit) capsule 125 mcg PO DAILY Follow up/Referrals: [facility] [Primary Care Provider, Family Practice] Visit Report/Discharge Packet Stand Alone Forms: [employer], Patient Portal/API, Stroke Signs & Symptoms, Influenza Vaccine Info, Notice of Privacy Practices, Inpatient vs Outpatient, Pneumococcal Vaccine Info, Pt. Rights & Responsibilities Discharge Data Primary Care Provider: Boo Echols
[2025-05-03] MEDS: FERROUS SULFATE 325 MG TABLET PO (08:25)
[2025-05-03 08:26] VITALS: TEMP 36.8
[2025-05-03] MEDS: LANOLIN OINT 7 GM 1 APPLIC TOP (08:27)
== END 2025-05-03 10:55 | disposition home or self-care (01) | DRG 807 ==
PROVIDERS: Admitting Provider Family Medicine; Referring Provider Family Medicine; Visit Provider Family Medicine
DX: O99.214 Obesity complicating childbirth (principal); Z37.0 Single live birth; O99.02 Anemia complicating childbirth; Z3A.39 39 weeks gestation of pregnancy; O99.344 Other mental disorders complicating childbirth; F43.10 Post-traumatic stress disorder, unspecified; F90.9 Attention-deficit hyperactivity disorder, unspecified type; O76 Abnormality in fetal heart rate and rhythm complicating labor and delivery
CPT/HCPCS: 36415; 59050; 59200; 85014; 85018; 85025; 86850; 86900; 86901; G0379; J2590; J3010; J7120